=== PATIENT | male | born 1955 | race Caucasian/White ===

== ENCOUNTER → 2017-04-10 | Outpatient (CLI) | payer BC ==
[2017-04-10 10:07] LABS: ALBUMIN 3.6 GM/DL (3.2-5.2); ALBUMIN/GLOBULIN RATIO 1.29 (1.00-1.93); ALKALINE PHOSPHATASE 67 U/L (45-117); ALT/SGPT 25 U/L (12-78); ANION GAP 5 MEQ/L (8-16); AST/SGOT 16 U/L (15-37); BILIRUBIN,TOTAL 0.5 MG/DL (0.2-1.0); BLOOD UREA NITROGEN 15 MG/DL (7-18); CALCIUM LEVEL 8.5 MG/DL (8.8-10.2); CARBON DIOXIDE LEVEL 30 MEQ/L (21-32); CHLORIDE LEVEL 105 MEQ/L (98-107); CHOLESTEROL LEVEL 246 MG/DL (<200); CREATININE FOR GFR 1.06 MG/DL (0.70-1.30); GLOMERULAR FILTRATION RATE > 60.0 (>49); GLUCOSE, FASTING 115 MG/DL (80-110); POTASSIUM SERUM 4.4 MEQ/L (3.5-5.1); SODIUM LEVEL 140 MEQ/L (136-145); TOTAL PROTEIN 6.4 GM/DL (6.4-8.2); TRIGLYCERIDES LEVEL 165 MG/DL (<150); URIC ACID 6.4 MG/DL (3.5-7.2)
== END ==
LOC: M LAB 08:35
PROVIDERS: ATTEND Family Medicine
DX: E78.00 Pure hypercholesterolemia, unspecified (principal); M10.072 Idiopathic gout, left ankle and foot

== ENCOUNTER → 2018-04-13 | Outpatient (REF) | payer BC | LOC: M LAB REF 18:01 | DX: M10.072 Idiopathic gout, left ankle and foot (principal) | CPT/HCPCS: 84550 ==

== ENCOUNTER → 2019-04-15 | Outpatient (REF) | payer BC | LOC: M LAB REF 12:32 | PROVIDERS: ATTEND Family Medicine | DX: M10.9 Gout, unspecified (principal) ==

== ENCOUNTER → 2020-04-17 | Outpatient (REF) | payer BC | LOC: M LAB REF 10:26 | PROVIDERS: ATTEND Family Medicine | DX: Z00.00 Encounter for general adult medical examination without abnormal findings (principal); M10.9 Gout, unspecified ==

== ENCOUNTER 2020-09-14 08:23 | Outpatient (RCR) | END 2020-09-15 | LOC: M EMP 08:23 | PROVIDERS: ATTEND Family Medicine | DX: Z20.828 Contact with and (suspected) exposure to other viral communicable diseases (principal) ==

== ENCOUNTER → 2020-09-18 | Outpatient (CLI) | payer BC | LOC: M LABSMTC 11:25 | PROVIDERS: ATTEND Pediatrics | DX: Z20.828 Contact with and (suspected) exposure to other viral communicable diseases (principal) | CPT/HCPCS: C9803; U0003 ==

== ENCOUNTER → 2020-09-21 | Outpatient (CLI) | payer BC | LOC: M LABSMTC 11:23 | PROVIDERS: ATTEND Pediatrics | DX: Z20.828 Contact with and (suspected) exposure to other viral communicable diseases (principal) | CPT/HCPCS: C9803; U0003 ==

== ENCOUNTER → 2020-09-24 | Outpatient (CLI) | payer BC | LOC: M LABSMTC 11:16 | PROVIDERS: ATTEND Pediatrics | DX: Z20.828 Contact with and (suspected) exposure to other viral communicable diseases (principal) | CPT/HCPCS: C9803; U0002 ==

== ENCOUNTER → 2020-09-28 | Outpatient (CLI) | payer BC | LOC: M LABSMTC 11:00 | PROVIDERS: ATTEND Pediatrics | DX: Z20.828 Contact with and (suspected) exposure to other viral communicable diseases (principal) ==

== ENCOUNTER → 2021-04-17 | Outpatient (REF) | payer BC | LOC: M LAB REF 16:00 | PROVIDERS: ATTEND Family Medicine | DX: M10.9 Gout, unspecified (principal) ==

== ENCOUNTER → 2021-08-07 | Outpatient (REF) | payer BC | LOC: M SMT 13:15 | PROVIDERS: ATTEND Urology | DX: Z30.2 Encounter for sterilization (principal) ==

== ENCOUNTER → 2022-06-11 | Outpatient (REF) | payer BC ==
[2022-06-11 17:25] LABS: APPEARANCE, URINE CLEAR (CLEAR); BACTERIA, URINE AUTO NEGATIVE (NEGATIVE); BILIRUBIN, URINE AUTO NEGATIVE (NEGATIVE); BLOOD, URINE BLOOD NEGATIVE (NEGATIVE); COLOR, URINE YELLOW (YELLOW); GLUCOSE, URINE (UA) AUTO 1+ mg/dL (NEGATIVE); KETONE, URINE AUTO NEGATIVE (NEGATIVE); LEUKOCYTE ESTERASE, URINE AUTO NEGATIVE (NEGATIVE); NITRITE, URINE AUTO NEGATIVE (NEGATIVE); PROTEIN, URINE AUTO NEGATIVE (NEGATIVE); RBC, URINE AUTO 0 /HPF (0-3); SPECIFIC GRAVITY URINE AUTO 1.016 (1.002-1.035); SQUAMOUS EPITHELIAL CELL UR AU 0 /HPF (0-6); UROBILINOGEN, URINE AUTO 0.2 mg/dL (0.0-2.0); WBC, URINE AUTO 0 /HPF (0-3)
== END ==
LOC: M SMT 16:56
PROVIDERS: ATTEND Nurse Practitioner Women's Health
DX: R97.20 Elevated prostate specific antigen [PSA] (principal)

== ENCOUNTER → 2022-07-18 | Outpatient (REF) | payer BC | LOC: M SMT 12:59 | PROVIDERS: ATTEND Urology | DX: R97.20 Elevated prostate specific antigen [PSA] (principal) ==

== ENCOUNTER → 2022-10-02 | Outpatient (CLI) | payer BC ==
[~2022-10-02] VITALS: Ht 182.9 cm; Wt 84.1 kg
[~2022-10-02] MED LIST: ALLO100T PO; ATOR1TAB19 PO; CIPR750T2 PO; ECOT81TA5 PO; LIDOCAINE 2% MDV 20ML VIAL XX ONE; LIDOCAINE VISCOUS 2% SOLN 15ML UDC XX ONE; LORA1TAB4 PO; SILD100T PO
[2022-10-02 12:59] VITALS: BP 131/80
== END ==
LOC: M ONCR 12:50
PROVIDERS: ATTEND General Practice
DX: C61 Malignant neoplasm of prostate (principal)
CPT/HCPCS: 55874; 55876; A4648; C1889

== ENCOUNTER 2022-10-14 10:19 | Outpatient (RCR) | payer MEDICARE, BC ==
[~2022-10-14 10:19] MED LIST changes: -LIDOCAINE 2% MDV 20ML VIAL XX ONE; -LIDOCAINE VISCOUS 2% SOLN 15ML UDC XX ONE
== END 2022-10-15 ==
LOC: M ONCR 10:19
PROVIDERS: ATTEND General Practice
DX: C61 Malignant neoplasm of prostate (principal)

== ENCOUNTER 2022-11-11 14:06 | Outpatient (RCR) | payer BC, MEDICARE ==
[~2022-11-11 14:06] MED LIST changes: +TAMS1CAP17 PO
== END 2022-11-15 ==
LOC: M ONCR 14:06
PROVIDERS: ATTEND General Practice
DX: C61 Malignant neoplasm of prostate (principal)

== ENCOUNTER → 2023-02-10 | Outpatient (CLI) | payer BC, MEDICARE | LOC: M ONCR 14:14 | PROVIDERS: ATTEND General Practice | DX: C61 Malignant neoplasm of prostate (principal); Z79.899 Other long term (current) drug therapy; Z92.3 Personal history of irradiation ==

== ENCOUNTER → 2023-11-23 | Outpatient (REF) | payer BC, MEDICARE ==
[~2023-11-23] MED LIST changes: +LORA1TAB23 PO; -LORA1TAB4 PO
== END ==
LOC: M LAB REF 16:02
PROVIDERS: ATTEND Family Medicine
DX: N39.0 Urinary tract infection, site not specified (principal)

== ENCOUNTER → 2024-02-11 | Outpatient (CLI) | payer BC, MEDICARE | LOC: M ONCR 14:07 | PROVIDERS: ATTEND General Practice | DX: C61 Malignant neoplasm of prostate (principal); Z92.3 Personal history of irradiation; Z79.899 Other long term (current) drug therapy; Z79.82 Long term (current) use of aspirin ==

== ENCOUNTER → 2024-03-10 | Outpatient (REF) | LOC: M EMP 12:04 | PROVIDERS: ATTEND Pediatrics | DX: Z11.52 Encounter for screening for COVID-19 (principal) ==

== ENCOUNTER → 2024-07-18 | Outpatient (CLI) | payer BC, MEDICARE | LOC: M RAD 08:58 → M LAB 08:58 | PROVIDERS: ATTEND Urology | DX: C61 Malignant neoplasm of prostate (principal) ==

== ENCOUNTER → 2025-02-10 | Outpatient (CLI) | payer BC, MEDICARE | LOC: M ONCR 14:09 | PROVIDERS: ATTEND General Practice | DX: Z08 Encounter for follow-up examination after completed treatment for malignant neoplasm (principal); Z85.46 Personal history of malignant neoplasm of prostate; Z79.82 Long term (current) use of aspirin; Z79.899 Other long term (current) drug therapy ==

== ENCOUNTER → 2025-07-17 | Outpatient (CLI) | payer BC, MEDICARE | LOC: M LAB 13:47 | PROVIDERS: ATTEND Urology | DX: C61 Malignant neoplasm of prostate (principal) ==